=== PATIENT | male | born 1995 | race Asian ===

== ENCOUNTER 2017-12-19 10:32 | Emergency (ER) | payer OTHER ==
--- NOTE | 2017-12-19 11:24 | ED ---
HPI Chest Pain - HPI Summary HPI Summary: The patient is a 22-year-old male who presents to emergency department for left- sided chest pain 3 days. Pain is described as dull and pressure like sensation. Denies recent trauma or falls. Denies recent illness, fever or chills, cough, sore throat, sinus congestion, abdominal pain, vomiting, diarrhea. Pain is worse with standing and better with lying flat. 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 Patient currently takes a TB aspirin on a daily basis. Patient states he' s been taking a full aspirin the last few days given his chest pain and states this improves his pain. Note history of asthma. Otherwise denies past medical history. States he smokes maybe 3 times year. No significant family history of CAD. Patient denies drug use. Admits to 2-3 cups of coffee a day. Symptoms are moderate in severity. - History of Current Complaint Chief Complaint: EDChestPainROMI Time Seen by Provider: 12/19/17 10:46 Pain Intensity: 3 - Allergy/Home Medications Allergies/Adverse Reactions: Allergies Allergy/AdvReac Type Severity Reaction Status Date / Time No Known Allergies Allergy Verified 06/23/14 10:58 PMH/Surg Hx/FS Hx/Imm Hx Respiratory History: Reports: Hx Asthma - childhood - Surgical History Surgery Procedure, Year, and Place: replcement of tricuspid valve 2 years ago Infectious Disease History: No Infectious Disease History: Denies: Traveled Outside the [place] in Last 30 Days - Family History Known Family History: Positive: Unknown - Social History Alcohol Use: Weekly Hx Substance Use: No Substance Use Type: Reports: None Hx Tobacco Use: No Smoking Status (MU): Never Smoked Tobacco Review of Systems - ROS Summary Review of Systems Summary: Constitutional: No fever, chills. Head/Face: No trauma. Neck: No swelling or pain. Eyes: No visual disturbances. ENT: No ear pain. No nasal discharge or bleeding. No throat pain/swelling. Heart: Chest pain Lungs: No cough. No SOB. Abdomen: No pain. No nausea, vomiting or diarrhea. MS: No truama. No leg swelling or pain. Skin: No rash. : No urgency frequency or dysuria. Neuro: No change in mental status. No umbness, tingling or weakness. All other systems reviewed and are negative. Constitutional: Negative Negative: Fever, Chills Eyes: Negative ENT: Negative Positive: Chest Pain Respiratory: Negative Gastrointestinal: Negative Genitourinary: Negative Musculoskeletal: Negative Skin: Negative Neurological: Negative Psychological: Normal All Other Systems Reviewed And Are Negative: Yes Physical Exam Vital Signs On Initial Exam: Initial Vitals Temp Pulse Resp BP Pulse Ox 97.8 F 66 16 109/73 100 12/19/17 10:36 12/19/17 10:36 12/19/17 10:36 12/19/17 10:36 12/19/17 10:36 Diagnostics - Vital Signs Vital Signs Temp Pulse Resp BP Pulse Ox 12/19/17 11:00 70 16 99/67 100 12/19/17 10:55 66 15 100 12/19/17 10:53 105/68 12/19/17 10:36 97.8 F 66 16 109/73 100 - Laboratory Result Diagrams: 12/19/17 11:51 12/19/17 11:51 Lab Statement: Any lab studies that have been ordered have been reviewed, and results considered in the medical decision making process. Chest Pain Course/Dx - Course Course Of Treatment: Pt. presenting to the ER for chest discomfort x 3 days. Pain positional. Temp. minimally elevated at 99.9F. HR is 67-86 bpm. O2 saturation 97-100% on RA which is normal. Given pt.'s hx labs, ecg and CXR were ordered. His pain is currently minimal at 1/10. Placed on monitor. CBC and CMP are unremarkable. Negative troponin and sed rate. CXR is negative for infiltrate , pneumo, effusion or acute findings, reading per radiology. ECG done at 1035 shows a sinus rhythm of 60bpm, left axis deviation, appropriate intervals, no ST elevation or depression. Case briefly discussed with Dr. Kerns. On re-exam pt. is resting comfortably. Results were discussed. He is relieved test are normal. Recommend close f.u with PCP. NSAIDS for pain as directed. To return to ER for increased pain, fever, SOB or if concerned. Pt. understands and agrees with plan. - Diagnoses Provider Diagnoses: Atypical chest pain, Pleurisy Discharge - Sign-Out/Discharge Documenting (check all that apply): Discharge - Discharge Plan Condition: Good Disposition: HOME Patient Education Materials: Chest Pain (ED), Pleurisy (ED) Referrals: [facility] - Ubaldo MACARIO [Primary Care Provider] - Additional Instructions: Follow up with PCP NSAIDS for pain as directed Return to ER for fever, increased pain, shortness of breath or if concerned - Billing Disposition and Condition Condition: GOOD Disposition: HOME
--- NOTE | 2017-12-19 11:49 | RAD ---
HISTORY: Chest pain COMPARISONS: June 23, 2014 VIEWS: 1: frontal portable view of the chest at 11:29 AM FINDINGS: LINES AND TUBES: None. CARDIOMEDIASTINAL SILHOUETTE: The cardiomediastinal silhouette is normal for portable technique. A prosthetic heart valve is noted. PLEURA: The costophrenic angles are sharp. No pleural abnormalities are noted. LUNG PARENCHYMA: The lungs are clear. ABDOMEN: The upper abdomen is clear. There is no subphrenic gas. BONES AND SOFT TISSUES: The patient is status post median sternotomy. IMPRESSION: NO ACTIVE CARDIOPULMONARY DISEASE.
[2017-12-19 12:00] LABS: ABS Basophils 0 10^3/ul (0-0.2); ABS Eosinophils 0.1 10^3/ul (0-0.6); ABS Lymphocytes 1.6 10^3/ul (1.0-4.8); ABS Monocytes 0.8 10^3/ul (0-0.8); ABS Neutrophils 5.4 10^3/ul (1.5-7.7); ABS Nucleated RBC 0 10^3/ul; Eosinophil % 1.4 % (0-6); Hematocrit 44 % (42-52); Hemoglobin 14.7 g/dl (14.0-18.0); Lymphocyte % 19.9 % (25-47); Mean Corpuscular HGB Conc 34 g/dl (31-36); Mean Corpuscular Hemoglobin 33 pg (27-31); Mean Corpuscular Volume 97 fL (80-94); Mean Platelet Volume 9.4 um3 (7.4-10.4); Nucleated Red Blood Cells % 0; Platelet Count 159 10^3/ul (150-450); Red Blood Count 4.53 10^6/ul (4.0-5.4); Red Cell Distribution Width 13 % (10.5-15); White Blood Count 7.9 10^3/ul (3.5-10.8)
[2017-12-19 12:18] LABS: EGFR Non-African American 90.3 (>60)
[2017-12-19 14:05] VITALS: BP 102/61
== END 2017-12-19 14:03 | disposition home or self-care (01) ==
LOC: ED 10:32
DX: R07.89 Other chest pain (principal); R09.1 Pleurisy
CPT/HCPCS: 36415; 71045; 80053; 83690; 84443; 84484; 85025; 85652; 93005; 99282